=== PATIENT | male | born 2000 | race Caucasian/White ===

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

== ENCOUNTER 2022-07-28 02:52 | Emergency (ER) | payer OTHER ==
[~2022-07-28] VITALS: Ht 177.8 cm; Wt 93.2 kg
[2022-07-28] MEDS ORDERED: ACETAMINOPHEN 500 MG TAB PO ONE (03:35)
[2022-07-28] MEDS ORDERED: IBUPROFEN 800 MG TAB PO ONE (04:50)
[2022-07-28] MEDS ORDERED: METAL LOCK LOOP XX ONE (05:13)
[2022-07-28 06:34] VITALS: BP 126/68
[2022-07-28] MEDS ORDERED: ACET325C5 PO (06:51)
[2022-07-28] MEDS ORDERED: IBUP-1022 PO (06:51)
== END 2022-07-28 07:00 | disposition home or self-care (01) ==
LOC: EDBD 02:52 → M ED 02:52
DX: J09.X9 Influenza due to identified novel influenza A virus with other manifestations (principal); F32.A Depression, unspecified; F41.9 Anxiety disorder, unspecified; F25.9 Schizoaffective disorder, unspecified; Z79.899 Other long term (current) drug therapy

== ENCOUNTER 2022-09-17 00:01 | Emergency (ER) | payer OTHER ==
[~2022-09-17] VITALS: Ht 170.2 cm; Wt 92.9 kg
[~2022-09-17 00:01] MED LIST changes: +ACET325C5 PO; +IBUP-1022 PO
[2022-09-17 05:07] VITALS: BP 138/85
[2022-09-17] MEDS ORDERED: ACETAMINOPHEN TAB 650MG DOSE (2X325MG) PO ONE (06:35)
[2022-09-17] MEDS ORDERED: IBUPROFEN 800 MG TAB PO ONE (06:35)
[2022-09-17] MEDS ORDERED: KETO10TAB PO (06:36)
== END 2022-09-17 06:48 | disposition home or self-care (01) ==
LOC: M ED 00:01 → EDBD 00:01 → M ED 06:48
DX: S43.402A Unspecified sprain of left shoulder joint, initial encounter (principal); W19.XXXA Unspecified fall, initial encounter; Y92.89 Other specified places as the place of occurrence of the external cause; F17.219 Nicotine dependence, cigarettes, with unspecified nicotine-induced disorders; Z79.1 Long term (current) use of non-steroidal anti-inflammatories (NSAID); Z79.899 Other long term (current) drug therapy

== ENCOUNTER 2023-01-12 17:36 | Inpatient (IN) | payer MEDICAID, OTHER ==
[~2023-01-12] VITALS: Ht 175.3 cm; Wt 90.4 kg
[~2023-01-12 17:36] MED LIST changes: +KETO10TAB PO
[2023-01-12] MEDS ORDERED: LURA20TA PO (17:49)
[2023-01-12 18:18] LABS: HEMATOCRIT 44.8 % (42.0-52.0); HEMOGLOBIN 15.8 g/dl (13.5-17.5); MEAN CORPUSCULAR HEMOGLOBIN 29.8 pg (27.0-33.0); MEAN CORPUSCULAR HGB CONC 35.3 g/dl (32.0-36.5); MEAN CORPUSCULAR VOLUME 84.5 fl (80.0-96.0); PLATELET COUNT, AUTOMATED 210 10^3/uL (150-450); WHITE BLOOD COUNT 8.5 10^3/uL (4.0-10.0)
[2023-01-12 18:44] LABS: AMPHETAMINES LEVEL URINE NEGATIVE (NEGATIVE); BARBITURATES URINE NEGATIVE (NEGATIVE); BENZODIAZEPINES URINE NEGATIVE (NEGATIVE); COCAINE METABOLITE URINE NEGATIVE (NEGATIVE); METHADONE URINE NEGATIVE (NEGATIVE); PHENCYCLIDINE URINE NEGATIVE (NEGATIVE)
[2023-01-12 18:45] LABS: CANNABINOIDS URINE NEGATIVE (NEGATIVE); OPIATES URINE NEGATIVE (NEGATIVE)
[2023-01-12 18:46] LABS: ETHYL ALCOHOL (ETHANOL) < 0.003 % (0.000-0.010)
[2023-01-12 18:48] LABS: ACETAMINOPHEN LEVEL < 2.0 UG/ML (10.0-20.0); ALBUMIN 4.4 G/DL (3.2-5.2); ALKALINE PHOSPHATASE 115 U/L (46-116); ALT/SGPT 112 U/L (7.0-40); AST/SGOT 36 U/L (<34); BILIRUBIN,DIRECT 0.5 MG/DL (<0.4); BILIRUBIN,TOTAL 1.5 MG/DL (0.3-1.2); BLOOD UREA NITROGEN 14 MG/DL (9-23); CALCIUM LEVEL 9.1 MG/DL (8.5-10.1); CARBON DIOXIDE LEVEL 24 MMOL/L (20-31); CHLORIDE LEVEL 103 MMOL/L (98-107); CREATININE FOR GFR 0.95 MG/DL (0.70-1.30); GLUCOSE, FASTING 88 MG/DL (60-100); POTASSIUM SERUM 3.6 MMOL/L (3.5-5.1); SALICYLATE LEVEL < 3.0 MG/DL (<30); SODIUM LEVEL 138 MMOL/L (136-145)
[2023-01-12 18:50] LABS: THYROID STIMULATING HORMONE 5.609 uIU/ML (0.48-4.17)
[2023-01-12] MEDS ORDERED: GABA-282 PO (20:52)
[2023-01-12] MEDS ORDERED: HOME MED LIST COMPLETE! XX SCH (20:55)
[2023-01-13] MEDS ORDERED: traZODone 50 MG TAB PO PRN (01:30)
[2023-01-13] MEDS ORDERED: OLANZapine ORAL DISINTEGRATING TAB 5MG PO PRN (01:30)
[2023-01-13] MEDS ORDERED: MOM 30ML SUSPENSION UDC PO PRN (01:30)
[2023-01-13] MEDS ORDERED: MAALOX 30 ML SUSP *UDC PO PRN (01:30)
[2023-01-13 02:53] VITALS: BP 136/87
[2023-01-13] MEDS: ACETAMINOPHEN TAB 650MG DOSE (2X325MG) PO PRN (05:22)
[2023-01-13] MEDS: GABAPENTIN 300 MG CAP PO SCH (08:55)
[2023-01-13] MEDS ORDERED: PALIPERIDONE 3MG ER TAB (INVEGA) PO SCH (09:00)
[2023-01-13] MEDS ORDERED: LURASIDONE 20 MG TAB (LATUDA) PO SCH (09:00)
[2023-01-13 15:48] VITALS: BP 110/55
[2023-01-13] MEDS: PALIPERIDONE 3MG ER TAB (INVEGA) PO SCH (21:47)
[2023-01-14 06:27] VITALS: BP 145/86
[2023-01-14] MEDS: PALIPERIDONE 3MG ER TAB (INVEGA) PO SCH ×2 (07:46→21:45)
[2023-01-14] MEDS: GABAPENTIN 300 MG CAP PO SCH (07:46)
[2023-01-14 08:04] LABS: CHOLESTEROL RISK RATIO 3.68 (<5); HDL CHOLESTEROL 37.4 MG/DL (>40); LDL CHOLESTEROL 85.8 MG/DL (<100); NON-HDL-C 100.6 MG/DL
[2023-01-14] MEDS: ACETAMINOPHEN TAB 650MG DOSE (2X325MG) PO PRN (10:08)
[2023-01-14 16:23] VITALS: BP 127/71
[2023-01-15 06:46] VITALS: BP 126/91
[2023-01-15] MEDS: PALIPERIDONE 3MG ER TAB (INVEGA) PO SCH ×2 (08:00→20:16)
[2023-01-15] MEDS: GABAPENTIN 300 MG CAP PO SCH (08:00)
[2023-01-15] MEDS: IBUPROFEN 400MG TAB PO PRN (11:23)
[2023-01-15 16:44] VITALS: BP 127/68
[2023-01-16 06:34] VITALS: BP 126/57
[2023-01-16] MEDS: GABAPENTIN 300 MG CAP PO SCH (08:19)
[2023-01-16] MEDS: PALIPERIDONE 3MG ER TAB (INVEGA) PO SCH ×2 (08:19→20:46)
[2023-01-16] MEDS ORDERED: BENZTROPINE 0.5 MG TAB PO PRN (09:55)
[2023-01-16] MEDS ORDERED: PALIPERIDONE PAL 234MG/1.5ML INJ (INVEGA)(FREE PSY INPT ONLY) IM ONE (12:00)
[2023-01-16 18:00] VITALS: BP 139/86
[2023-01-17 06:39] VITALS: BP 137/61
[2023-01-17] MEDS: GABAPENTIN 300 MG CAP PO SCH (08:26)
[2023-01-17] MEDS: PALIPERIDONE 3MG ER TAB (INVEGA) PO SCH ×2 (08:26→21:41)
[2023-01-17] MEDS: ACETAMINOPHEN TAB 650MG DOSE (2X325MG) PO PRN (12:40)
[2023-01-17 16:18] VITALS: BP 148/88
[2023-01-18 06:17] VITALS: BP 118/59
[2023-01-18] MEDS: GABAPENTIN 300 MG CAP PO SCH (08:38)
[2023-01-18] MEDS: PALIPERIDONE 3MG ER TAB (INVEGA) PO SCH ×2 (08:39→20:07)
[2023-01-18] MEDS ORDERED: BENZ0.5T2 PO (12:33)
[2023-01-18] MEDS ORDERED: INVE234I IM (12:33)
[2023-01-18] MEDS ORDERED: GABA-282 PO (12:33)
[2023-01-18 18:34] VITALS: BP 111/81
[2023-01-18] MEDS: IBUPROFEN 400MG TAB PO PRN (18:36)
[2023-01-19 06:44] VITALS: BP 117/72
[2023-01-19] MEDS: GABAPENTIN 300 MG CAP PO SCH (08:22)
[2023-01-19] MEDS ORDERED: PALIPERIDONE PAL 156MG/1ML INJ(INVEGA)(FREE PSY INPT ONLY) IM ONE (09:00)
== END 2023-01-19 11:18 | disposition home or self-care (01) | DRG 750 ==
LOC: M ED 17:36 → M ED INP 01-13 01:30 → M PSY 01-13 03:06
PROVIDERS: ADMIT Student in an Organized Health Care Education/Training Program; ATTEND Psychiatry & Neurology Psychiatry
DX: F25.0 Schizoaffective disorder, bipolar type (principal); R45.850 Homicidal ideations; R45.851 Suicidal ideations; R74.01 Elevation of levels of liver transaminase levels; E86.0 Dehydration; Z79.899 Other long term (current) drug therapy; Z87.891 Personal history of nicotine dependence; Z81.8 Family history of other mental and behavioral disorders; Z62.811 Personal history of psychological abuse in childhood; Z91.148 Patient's other noncompliance with medication regimen for other reason

== ENCOUNTER 2023-01-31 06:31 | Inpatient (IN) | payer MEDICAID, OTHER ==
[~2023-01-31] VITALS: Ht 175.3 cm; Wt 91.4 kg
[~2023-01-31 06:31] MED LIST changes: +BENZ0.5T2 PO; +GABA-282 PO; +INVE234I IM; +LURA20TA PO
[2023-01-31 08:29] LABS: HEMOGLOBIN 14.9 g/dl (13.5-17.5); MEAN CORPUSCULAR HEMOGLOBIN 29.6 pg (27.0-33.0); MEAN CORPUSCULAR HGB CONC 34.7 g/dl (32.0-36.5); MEAN CORPUSCULAR VOLUME 85.3 fl (80.0-96.0); PLATELET COUNT, AUTOMATED 244 10^3/uL (150-450); RED BLOOD COUNT 5.04 10^6/uL (4.30-6.10); WHITE BLOOD COUNT 8.2 10^3/uL (4.0-10.0)
[2023-01-31 08:46] LABS: AMPHETAMINES LEVEL URINE NEGATIVE (NEGATIVE); BENZODIAZEPINES URINE NEGATIVE (NEGATIVE)
[2023-01-31 08:47] LABS: BARBITURATES URINE NEGATIVE (NEGATIVE); CANNABINOIDS URINE NEGATIVE (NEGATIVE); COCAINE METABOLITE URINE NEGATIVE (NEGATIVE); METHADONE URINE NEGATIVE (NEGATIVE); OPIATES URINE NEGATIVE (NEGATIVE); PHENCYCLIDINE URINE NEGATIVE (NEGATIVE)
[2023-01-31 08:48] LABS: ETHYL ALCOHOL (ETHANOL) < 0.003 % (0.000-0.010)
[2023-01-31 08:50] LABS: SALICYLATE LEVEL < 3.0 MG/DL (<30)
[2023-01-31 08:51] LABS: ACETAMINOPHEN LEVEL < 2.0 UG/ML (10.0-20.0); ALBUMIN 4.1 G/DL (3.2-5.2); ALKALINE PHOSPHATASE 99 U/L (46-116); ALT/SGPT 79 U/L (7.0-40); AST/SGOT 25 U/L (<34); BILIRUBIN,DIRECT 0.3 MG/DL (<0.4); BILIRUBIN,TOTAL 0.8 MG/DL (0.3-1.2); BLOOD UREA NITROGEN 17 MG/DL (9-23); CALCIUM LEVEL 9.4 MG/DL (8.5-10.1); CARBON DIOXIDE LEVEL 24 MMOL/L (20-31); CHLORIDE LEVEL 105 MMOL/L (98-107); CREATININE FOR GFR 0.95 MG/DL (0.70-1.30); GLUCOSE, FASTING 95 MG/DL (60-100); POTASSIUM SERUM 3.8 MMOL/L (3.5-5.1); SODIUM LEVEL 137 MMOL/L (136-145); TOTAL PROTEIN 6.7 G/DL (5.7-8.2)
[2023-01-31 08:54] LABS: THYROID STIMULATING HORMONE 3.159 uIU/ML (0.48-4.17)
[2023-01-31] MEDS: NICOTINE 21MG/24HR 1 EA TRANSDERMAL TD SCH (09:00)
[2023-01-31] MEDS ORDERED: MAALOX 30 ML SUSP *UDC PO PRN (11:45)
[2023-01-31] MEDS ORDERED: MOM 30ML SUSPENSION UDC PO PRN (11:45)
[2023-01-31] MEDS ORDERED: IBUPROFEN 400MG TAB PO PRN (11:45)
[2023-01-31] MEDS ORDERED: diphenhydrAMINE 25MG CAP PO PRN (11:45)
[2023-01-31] MEDS ORDERED: ACETAMINOPHEN TAB 650MG DOSE (2X325MG) PO PRN (11:45)
[2023-01-31] MEDS ORDERED: BENZTROPINE 0.5 MG TAB PO PRN (11:50)
[2023-01-31] MEDS ORDERED: PATIENT COMMENT (12:14)
[2023-01-31] MEDS ORDERED: INVE234I IM (12:14)
[2023-01-31] MEDS ORDERED: GABA-282 PO (12:14)
[2023-01-31] MEDS ORDERED: BENZ0.5T2 PO (12:14)
[2023-01-31] MEDS ORDERED: HOME MED LIST COMPLETE! XX SCH (12:15)
[2023-01-31 14:09] VITALS: BP 127/83
[2023-01-31] MEDS: traZODone 50 MG TAB PO PRN (20:31)
[2023-01-31] MEDS: PALIPERIDONE 3MG ER TAB (INVEGA) PO SCH (20:31)
[2023-02-01 06:46] VITALS: BP 100/55
[2023-02-01] MEDS: NICOTINE 21MG/24HR 1 EA TRANSDERMAL TD SCH (08:24)
[2023-02-01 18:15] VITALS: BP 130/70
[2023-02-01] MEDS: PALIPERIDONE 3MG ER TAB (INVEGA) PO SCH (22:06)
[2023-02-02] MEDS: traZODone 50 MG TAB PO PRN ×2 (00:33→23:14)
[2023-02-02 06:45] VITALS: BP 119/56
[2023-02-02] MEDS: NICOTINE 21MG/24HR 1 EA TRANSDERMAL TD SCH (08:44)
[2023-02-02] MEDS ORDERED: PALI1TAB2 PO (15:04)
[2023-02-02 18:42] VITALS: BP 144/75
[2023-02-02] MEDS: PALIPERIDONE 3MG ER TAB (INVEGA) PO SCH (21:21)
[2023-02-03 06:34] VITALS: BP 126/63
[2023-02-03] MEDS: NICOTINE 21MG/24HR 1 EA TRANSDERMAL TD SCH (08:58)
== END 2023-02-03 11:54 | disposition home or self-care (01) | DRG 750 ==
LOC: M ED 06:31 → M ED INP 11:45 → M PSY 14:08
PROVIDERS: ADMIT Student in an Organized Health Care Education/Training Program; ATTEND Student in an Organized Health Care Education/Training Program
DX: F25.0 Schizoaffective disorder, bipolar type (principal); R45.851 Suicidal ideations; R45.850 Homicidal ideations; Z62.810 Personal history of physical and sexual abuse in childhood; Z62.811 Personal history of psychological abuse in childhood; Z91.198 Patient's noncompliance with other medical treatment and regimen for other reason; Z56.0 Unemployment, unspecified; Z63.8 Other specified problems related to primary support group; Z79.899 Other long term (current) drug therapy; F84.0 Autistic disorder; F17.200 Nicotine dependence, unspecified, uncomplicated

== ENCOUNTER 2023-04-11 02:54 | Inpatient (IN) | payer MEDICAID, OTHER ==
[~2023-04-11] VITALS: Ht 170.2 cm; Wt 94.0 kg
[~2023-04-11 02:54] MED LIST changes: +PATIENT COMMENT
[2023-04-11 04:04] LABS: HEMATOCRIT 45.3 % (42.0-52.0); HEMOGLOBIN 15.6 g/dl (13.5-17.5); MEAN CORPUSCULAR HEMOGLOBIN 28.9 pg (27.0-33.0); MEAN CORPUSCULAR HGB CONC 34.4 g/dl (32.0-36.5); PLATELET COUNT, AUTOMATED 229 10^3/uL (150-450); RED BLOOD COUNT 5.39 10^6/uL (4.30-6.10); WHITE BLOOD COUNT 9.6 10^3/uL (4.0-10.0)
[2023-04-11 04:23] LABS: AMPHETAMINES LEVEL URINE NEGATIVE (NEGATIVE); BENZODIAZEPINES URINE NEGATIVE (NEGATIVE); CANNABINOIDS URINE NEGATIVE (NEGATIVE); PHENCYCLIDINE URINE NEGATIVE (NEGATIVE)
[2023-04-11 04:24] LABS: BARBITURATES URINE NEGATIVE (NEGATIVE); COCAINE METABOLITE URINE NEGATIVE (NEGATIVE); METHADONE URINE NEGATIVE (NEGATIVE); OPIATES URINE NEGATIVE (NEGATIVE)
[2023-04-11 04:26] LABS: ETHYL ALCOHOL (ETHANOL) < 0.003 % (0.000-0.010)
[2023-04-11 04:27] LABS: ACETAMINOPHEN LEVEL < 2.0 UG/ML (10.0-20.0)
[2023-04-11 04:28] LABS: ALBUMIN 4.4 G/DL (3.2-5.2); ALKALINE PHOSPHATASE 109 U/L (46-116); ALT/SGPT 80 U/L (7.0-40); AST/SGOT 24 U/L (<34); BILIRUBIN,DIRECT 0.4 MG/DL (<0.4); BILIRUBIN,TOTAL 1.2 MG/DL (0.3-1.2); BLOOD UREA NITROGEN 12 MG/DL (9-23); CALCIUM LEVEL 9.3 MG/DL (8.5-10.1); CARBON DIOXIDE LEVEL 30 MMOL/L (20-31); CHLORIDE LEVEL 104 MMOL/L (98-107); GLUCOSE, FASTING 118 MG/DL (60-100); SALICYLATE LEVEL < 3.0 MG/DL (<30); SODIUM LEVEL 140 MMOL/L (136-145); TOTAL PROTEIN 7.2 G/DL (5.7-8.2)
[2023-04-11 04:30] LABS: THYROID STIMULATING HORMONE 7.201 uIU/ML (0.48-4.17)
[2023-04-11 07:05] LABS: FREE T4 1.42 NG/DL (0.83-1.43)
[2023-04-11] MEDS ORDERED: MED REC CURRENTLY UNOBTAINABLE XX SCH (08:50)
[2023-04-11] MEDS ORDERED: MELA3TAB49 PO (10:32)
[2023-04-11] MEDS ORDERED: MED REC IN PROGRESS XX SCH (10:55)
[2023-04-11] MEDS ORDERED: HOME MED LIST COMPLETE! XX SCH (10:55)
[2023-04-11] MEDS ORDERED: ACETAMINOPHEN TAB 650MG DOSE (2X325MG) PO PRN (13:20)
[2023-04-11] MEDS ORDERED: OLANZapine ORAL DISINTEGRATING TAB 5MG PO PRN (13:20)
[2023-04-11] MEDS ORDERED: MOM 30ML SUSPENSION UDC PO PRN (13:20)
[2023-04-11] MEDS ORDERED: diphenhydrAMINE 25MG CAP PO PRN (13:20)
[2023-04-11] MEDS ORDERED: traZODone 50 MG TAB PO PRN (13:20)
[2023-04-11] MEDS ORDERED: MAALOX 30 ML SUSP *UDC PO PRN (13:20)
[2023-04-11] MEDS ORDERED: IBUPROFEN 400MG TAB PO PRN (13:20)
[2023-04-11 15:57] VITALS: BP 132/93; TEMP 96.2; O2SAT 99
[2023-04-12 06:26] VITALS: BP 119/67; TEMP 98; O2SAT 98
[2023-04-12] MEDS: NICOTINE 21MG/24HR 1 EA TRANSDERMAL TD SCH (09:00)
[2023-04-12] MEDS: PALIPERIDONE 6MG ER TAB (INVEGA) PO SCH (09:45)
[2023-04-12] MEDS: GABAPENTIN 300 MG CAP PO SCH (09:46)
[2023-04-12 17:17] VITALS: BP 130/63; TEMP 96.8; O2SAT 96
[2023-04-12] MEDS: RAMELTEON 8 MG TAB (ROZEREM) PO SCH (21:10)
[2023-04-13 06:51] VITALS: BP 115/55; TEMP 97.9; O2SAT 97
[2023-04-13] MEDS: GABAPENTIN 300 MG CAP PO SCH (08:42)
[2023-04-13] MEDS: PALIPERIDONE 6MG ER TAB (INVEGA) PO SCH (08:42)
[2023-04-13] MEDS: NICOTINE 21MG/24HR 1 EA TRANSDERMAL TD SCH (08:43)
[2023-04-13 17:06] VITALS: BP 149/75; TEMP 96.4; O2SAT 96
[2023-04-13] MEDS: RAMELTEON 8 MG TAB (ROZEREM) PO SCH (20:03)
[2023-04-14 06:48] VITALS: BP 115/68; TEMP 97.2; O2SAT 99
[2023-04-14] MEDS: GABAPENTIN 300 MG CAP PO SCH (08:28)
[2023-04-14] MEDS: PALIPERIDONE 6MG ER TAB (INVEGA) PO SCH (08:28)
[2023-04-14] MEDS: NICOTINE 21MG/24HR 1 EA TRANSDERMAL TD SCH (08:29)
[2023-04-14] MEDS ORDERED: risperiDONE LONG-ACTING 25MG 2ML INJ IM SCH (10:40)
[2023-04-14] MEDS ORDERED: NICO21PAT TD (12:25)
[2023-04-14] MEDS ORDERED: RISP25INJ IM (12:25)
[2023-04-14] MEDS ORDERED: PALI1TAB3 PO (12:25)
[2023-04-14] MEDS ORDERED: TRAZ-252 PO (12:26)
== END 2023-04-14 14:26 | disposition home or self-care (01) | DRG 750 ==
LOC: M ED 02:54 → M ED INP 13:19 → M PSY 15:56
PROVIDERS: ADMIT Student in an Organized Health Care Education/Training Program; ATTEND Student in an Organized Health Care Education/Training Program
DX: F25.0 Schizoaffective disorder, bipolar type (principal); F43.10 Post-traumatic stress disorder, unspecified; F84.0 Autistic disorder; F90.9 Attention-deficit hyperactivity disorder, unspecified type; F32.9 Major depressive disorder, single episode, unspecified; Z62.811 Personal history of psychological abuse in childhood; Z79.899 Other long term (current) drug therapy; F17.200 Nicotine dependence, unspecified, uncomplicated; Z56.0 Unemployment, unspecified; E02 Subclinical iodine-deficiency hypothyroidism; R45.851 Suicidal ideations; G47.00 Insomnia, unspecified

== ENCOUNTER 2023-04-21 17:45 | Inpatient (IN) | payer OTHER ==
[~2023-04-21] VITALS: Ht 170.2 cm; Wt 94.0 kg
[~2023-04-21 17:45] MED LIST changes: +MELA3TAB49 PO; +PALI1TAB3 PO; +RISP25INJ IM
[2023-04-21 18:32] LABS: HEMATOCRIT 47.4 % (42.0-52.0); HEMOGLOBIN 16.6 g/dl (13.5-17.5); MEAN CORPUSCULAR HEMOGLOBIN 29.1 pg (27.0-33.0); PLATELET COUNT, AUTOMATED 218 10^3/uL (150-450); RED BLOOD COUNT 5.71 10^6/uL (4.30-6.10); WHITE BLOOD COUNT 8.4 10^3/uL (4.0-10.0)
[2023-04-21 19:00] LABS: ETHYL ALCOHOL (ETHANOL) < 0.003 % (0.000-0.010)
[2023-04-21 19:01] LABS: ACETAMINOPHEN LEVEL < 2.0 UG/ML (10.0-20.0)
[2023-04-21 19:02] LABS: ALBUMIN 4.5 G/DL (3.2-5.2); ALKALINE PHOSPHATASE 116 U/L (46-116); ALT/SGPT 82 U/L (7.0-40); AST/SGOT 23 U/L (<34); BILIRUBIN,DIRECT 0.4 MG/DL (<0.4); BILIRUBIN,TOTAL 1.1 MG/DL (0.3-1.2); BLOOD UREA NITROGEN 15 MG/DL (9-23); CALCIUM LEVEL 9.5 MG/DL (8.5-10.1); CARBON DIOXIDE LEVEL 25 MMOL/L (20-31); CHLORIDE LEVEL 106 MMOL/L (98-107); GLUCOSE, FASTING 105 MG/DL (60-100); POTASSIUM SERUM 3.7 MMOL/L (3.5-5.1); SALICYLATE LEVEL < 3.0 MG/DL (<30); SODIUM LEVEL 139 MMOL/L (136-145); TOTAL PROTEIN 7.6 G/DL (5.7-8.2)
[2023-04-21 19:04] LABS: THYROID STIMULATING HORMONE 3.316 uIU/ML (0.48-4.17)
[2023-04-21 19:22] LABS: AMPHETAMINES LEVEL URINE NEGATIVE (NEGATIVE); BARBITURATES URINE NEGATIVE (NEGATIVE); BENZODIAZEPINES URINE NEGATIVE (NEGATIVE); CANNABINOIDS URINE NEGATIVE (NEGATIVE); COCAINE METABOLITE URINE NEGATIVE (NEGATIVE); METHADONE URINE NEGATIVE (NEGATIVE); OPIATES URINE NEGATIVE (NEGATIVE); PHENCYCLIDINE URINE NEGATIVE (NEGATIVE)
[2023-04-21] MEDS ORDERED: MED REC IN PROGRESS XX SCH (19:40)
[2023-04-21] MEDS ORDERED: diphenhydrAMINE 25MG CAP PO PRN (21:40)
[2023-04-21] MEDS ORDERED: MOM 30ML SUSPENSION UDC PO PRN (21:40)
[2023-04-21] MEDS ORDERED: TRAZ-186 PO (22:09)
[2023-04-21] MEDS ORDERED: PALI1TAB3 PO (22:09)
[2023-04-21] MEDS ORDERED: HOME MED LIST COMPLETE! XX SCH (22:10)
[2023-04-21 22:35] VITALS: BP 124/76; TEMP 97; O2SAT 97
[2023-04-22 06:32] VITALS: BP 109/55; TEMP 96.5; O2SAT 98
[2023-04-22] MEDS: PALIPERIDONE 6MG ER TAB (INVEGA) PO SCH (09:58)
[2023-04-22] MEDS: GABAPENTIN 300 MG CAP PO SCH (09:58)
[2023-04-22 18:07] VITALS: BP 123/60; TEMP 97.4; O2SAT 98
[2023-04-22 18:36] VITALS: BP 123/60; TEMP 97.4
[2023-04-23] MEDS: ACETAMINOPHEN TAB 650MG DOSE (2X325MG) PO PRN (06:34)
[2023-04-23 06:39] VITALS: BP 125/80; TEMP 97.9; O2SAT 97
[2023-04-23] MEDS: GABAPENTIN 300 MG CAP PO SCH (09:39)
[2023-04-23] MEDS: PALIPERIDONE 6MG ER TAB (INVEGA) PO SCH (09:40)
[2023-04-23 16:46] VITALS: BP 131/62; TEMP 97.4
[2023-04-23] MEDS: traZODone 50 MG TAB PO PRN (23:05)
[2023-04-24 06:22] VITALS: BP 132/74; TEMP 97.9; O2SAT 97
[2023-04-24] MEDS: GABAPENTIN 300 MG CAP PO SCH (08:15)
[2023-04-24] MEDS: PALIPERIDONE 6MG ER TAB (INVEGA) PO SCH (08:15)
[2023-04-24 18:00] VITALS: BP 138/77; TEMP 97.4
[2023-04-24] MEDS: ACETAMINOPHEN TAB 650MG DOSE (2X325MG) PO PRN (20:00)
[2023-04-24] MEDS: traZODone 50 MG TAB PO PRN (23:03)
[2023-04-25 06:21] VITALS: BP 140/64; TEMP 97.4; O2SAT 98
[2023-04-25] MEDS: PALIPERIDONE 6MG ER TAB (INVEGA) PO SCH (08:13)
[2023-04-25] MEDS: GABAPENTIN 300 MG CAP PO SCH (08:13)
[2023-04-25 19:15] VITALS: BP 149/75; TEMP 98.6
[2023-04-25] MEDS: traZODone 50 MG TAB PO PRN (22:30)
[2023-04-25] MEDS: MAALOX 30 ML SUSP *UDC PO PRN (23:42)
[2023-04-26 06:36] VITALS: BP 131/59; TEMP 97.1; O2SAT 98
[2023-04-26] MEDS: PALIPERIDONE 6MG ER TAB (INVEGA) PO SCH (08:55)
[2023-04-26] MEDS: GABAPENTIN 300 MG CAP PO SCH (08:55)
[2023-04-26 18:16] VITALS: BP 124/58; TEMP 96.9; O2SAT 97
[2023-04-26] MEDS: traZODone 50 MG TAB PO PRN (22:42)
[2023-04-27] MEDS: MAALOX 30 ML SUSP *UDC PO PRN (05:27)
[2023-04-27 07:03] VITALS: BP 133/84; TEMP 98; O2SAT 96
[2023-04-27] MEDS: PALIPERIDONE 6MG ER TAB (INVEGA) PO SCH (08:19)
[2023-04-27] MEDS: GABAPENTIN 300 MG CAP PO SCH (08:19)
[2023-04-27] MEDS ORDERED: risperiDONE LONG-ACTING 37.5MG 2ML INJ IM SCH (09:00)
[2023-04-27 18:04] VITALS: BP 118/57; TEMP 97.7; O2SAT 96
[2023-04-27] MEDS: IBUPROFEN 400MG TAB PO PRN (20:25)
[2023-04-27] MEDS: traZODone 50 MG TAB PO PRN (21:20)
[2023-04-28] MEDS: MAALOX 30 ML SUSP *UDC PO PRN (03:17)
[2023-04-28 06:46] VITALS: BP 134/76; TEMP 98.4; O2SAT 99
[2023-04-28] MEDS: GABAPENTIN 300 MG CAP PO SCH (08:11)
[2023-04-28] MEDS: PALIPERIDONE 6MG ER TAB (INVEGA) PO SCH (08:11)
[2023-04-28] MEDS ORDERED: risperiDONE LONG-ACTING 37.5MG 2ML INJ IM SCH (09:00)
[2023-04-28] MEDS: IBUPROFEN 400MG TAB PO PRN (12:32)
[2023-04-28] MEDS ORDERED: RISP37INJ IM (12:33)
[2023-04-28] MEDS ORDERED: PALI1TAB3 PO (12:33)
[2023-04-28] MEDS ORDERED: GABA-282 PO (12:33)
== END 2023-04-28 19:18 | disposition home or self-care (01) | DRG 750 ==
LOC: M ED 17:45 → M ED INP 21:37 → M PSY 22:52
PROVIDERS: ADMIT Psychiatry & Neurology Psychiatry; ATTEND Student in an Organized Health Care Education/Training Program
DX: F25.1 Schizoaffective disorder, depressive type (principal); R45.851 Suicidal ideations; F84.0 Autistic disorder; F41.9 Anxiety disorder, unspecified; F32.A Depression, unspecified; F10.11 Alcohol abuse, in remission; F43.10 Post-traumatic stress disorder, unspecified; F60.89 Other specific personality disorders; F17.210 Nicotine dependence, cigarettes, uncomplicated; Z63.4 Disappearance and death of family member; Z79.899 Other long term (current) drug therapy; Z63.79 Other stressful life events affecting family and household

== ENCOUNTER 2023-04-30 19:34 | Emergency (ER) | payer OTHER ==
[~2023-04-30 19:34] MED LIST changes: +RISP37INJ IM
[2023-04-30 19:42] VITALS: BP 151/76; TEMP 97; O2SAT 95
[2023-05-01 00:46] LABS: RSV AMPLIFICATION NEGATIVE (NEGATIVE)
[2023-05-01] MEDS ORDERED: IBUP-1022 PO (01:04)
[2023-05-01] MEDS ORDERED: IBUPROFEN 600MG TAB PO ONE (01:05)
== END 2023-05-01 01:09 | disposition home or self-care (01) ==
LOC: M ED 19:34
DX: J02.9 Acute pharyngitis, unspecified (principal)

== ENCOUNTER → 2023-05-03 | Outpatient (REF) | payer OTHER ==
[2023-05-03 17:12] LABS: ALBUMIN 4.4 G/DL (3.2-5.2); ALKALINE PHOSPHATASE 114 U/L (46-116); ALT/SGPT 82 U/L (7.0-40); AST/SGOT 22 U/L (<34); BILIRUBIN,DIRECT 0.5 MG/DL (<0.4); BILIRUBIN,TOTAL 1.6 MG/DL (0.3-1.2); TOTAL PROTEIN 7.3 G/DL (5.7-8.2)
[2023-05-03 17:18] LABS: HEPATITIS B SURFACE ANTIBODY NEGATIVE (POSITIVE)
[2023-05-03 17:50] LABS: HEPATITIS C VIRUS ABY INDEX 0.12 INDEX (<0.8)
[2023-05-03 17:51] LABS: HEPATITIS B CORE ANTIBODY IGM NEGATIVE (NEGATIVE)
== END ==
LOC: M LAB REF 16:20
PROVIDERS: ATTEND Pediatrics
DX: R74.01 Elevation of levels of liver transaminase levels (principal)

== ENCOUNTER 2023-05-15 21:09 | Emergency (ER) | payer OTHER ==
[2023-05-15 22:02] LABS: HEMATOCRIT 42.5 % (42.0-52.0); HEMOGLOBIN 14.9 g/dl (13.5-17.5); MEAN CORPUSCULAR HGB CONC 35.1 g/dl (32.0-36.5); MEAN CORPUSCULAR VOLUME 82.7 fl (80.0-96.0); PLATELET COUNT, AUTOMATED 215 10^3/uL (150-450); RED BLOOD COUNT 5.14 10^6/uL (4.30-6.10); WHITE BLOOD COUNT 5.2 10^3/uL (4.0-10.0)
[2023-05-15 22:26] LABS: SALICYLATE LEVEL < 3.0 MG/DL (<30)
[2023-05-15 22:27] LABS: ALBUMIN 3.9 G/DL (3.2-5.2); ALKALINE PHOSPHATASE 95 U/L (46-116); ALT/SGPT 46 U/L (7.0-40); AST/SGOT 23 U/L (<34); BILIRUBIN,DIRECT 0.4 MG/DL (<0.4); BILIRUBIN,TOTAL 1.2 MG/DL (0.3-1.2); BLOOD UREA NITROGEN 13 MG/DL (9-23); CALCIUM LEVEL 8.8 MG/DL (8.5-10.1); CARBON DIOXIDE LEVEL 26 MMOL/L (20-31); CHLORIDE LEVEL 104 MMOL/L (98-107); CREATININE FOR GFR 1.01 MG/DL (0.70-1.30); GLUCOSE, FASTING 114 MG/DL (60-100); POTASSIUM SERUM 3.7 MMOL/L (3.5-5.1); SODIUM LEVEL 138 MMOL/L (136-145); TOTAL PROTEIN 6.7 G/DL (5.7-8.2)
[2023-05-15 22:29] LABS: ETHYL ALCOHOL (ETHANOL) < 0.003 % (0.000-0.010); THYROID STIMULATING HORMONE 2.901 uIU/ML (0.48-4.17)
[2023-05-15 22:31] LABS: ACETAMINOPHEN LEVEL < 2.0 UG/ML (10.0-20.0)
[2023-05-15 23:15] LABS: AMPHETAMINES LEVEL URINE NEGATIVE (NEGATIVE); BARBITURATES URINE NEGATIVE (NEGATIVE); BENZODIAZEPINES URINE NEGATIVE (NEGATIVE); CANNABINOIDS URINE NEGATIVE (NEGATIVE); COCAINE METABOLITE URINE NEGATIVE (NEGATIVE); METHADONE URINE NEGATIVE (NEGATIVE); OPIATES URINE NEGATIVE (NEGATIVE); PHENCYCLIDINE URINE NEGATIVE (NEGATIVE)
[2023-05-15] MEDS ORDERED: RISP37INJ IM (23:36)
[2023-05-15] MEDS ORDERED: IBUP1TAB6 PO (23:36)
[2023-05-15] MEDS ORDERED: HOME MED LIST COMPLETE! XX SCH (23:40)
[2023-05-16] MEDS ORDERED: GABAPENTIN 300 MG CAP PO ONE (09:00)
[2023-05-17] MEDS ORDERED: GABAPENTIN 300 MG CAP PO ONE (09:00)
[2023-05-17] MEDS ORDERED: risperiDONE LONG-ACTING 37.5MG 2ML INJ IM SCH (09:00)
[2023-05-17 13:04] VITALS: BP 124/78; TEMP 98; O2SAT 98
== END 2023-05-17 13:09 | disposition home or self-care (01) ==
LOC: M ED 21:09
DX: F25.9 Schizoaffective disorder, unspecified (principal); F41.9 Anxiety disorder, unspecified; F84.0 Autistic disorder; F10.10 Alcohol abuse, uncomplicated
CPT/HCPCS: 80048; 80076; 80143; 80307; 82077; 84443; 85027; 87635; 93005; 96372; 99284; J2794

== ENCOUNTER 2023-05-31 22:49 | Inpatient (IN) | payer OTHER ==
[~2023-05-31] VITALS: Ht 172.7 cm; Wt 94.7 kg
[~2023-05-31 22:49] MED LIST changes: +IBUP1TAB6 PO
[2023-06-01 00:38] LABS: HEMATOCRIT 42.9 % (42.0-52.0); HEMOGLOBIN 14.9 g/dl (13.5-17.5); MEAN CORPUSCULAR HEMOGLOBIN 29.1 pg (27.0-33.0); MEAN CORPUSCULAR HGB CONC 34.7 g/dl (32.0-36.5); MEAN CORPUSCULAR VOLUME 83.8 fl (80.0-96.0); PLATELET COUNT, AUTOMATED 217 10^3/uL (150-450); RED BLOOD COUNT 5.12 10^6/uL (4.30-6.10); WHITE BLOOD COUNT 8.4 10^3/uL (4.0-10.0)
[2023-06-01 01:57] LABS: ACETAMINOPHEN LEVEL < 2.0 UG/ML (10.0-20.0); ALBUMIN 4.2 G/DL (3.2-5.2); ALKALINE PHOSPHATASE 101 U/L (46-116); ALT/SGPT 56 U/L (7.0-40); AMPHETAMINES LEVEL URINE NEGATIVE (NEGATIVE); AST/SGOT 21 U/L (<34); BARBITURATES URINE NEGATIVE (NEGATIVE); BENZODIAZEPINES URINE NEGATIVE (NEGATIVE); BILIRUBIN,DIRECT 0.3 MG/DL (<0.4); BILIRUBIN,TOTAL 0.9 MG/DL (0.3-1.2); BLOOD UREA NITROGEN 11 MG/DL (9-23); CALCIUM LEVEL 9.5 MG/DL (8.5-10.1); CANNABINOIDS URINE NEGATIVE (NEGATIVE); CARBON DIOXIDE LEVEL 29 MMOL/L (20-31); CHLORIDE LEVEL 107 MMOL/L (98-107); COCAINE METABOLITE URINE NEGATIVE (NEGATIVE); CREATININE FOR GFR 0.85 MG/DL (0.70-1.30); ETHYL ALCOHOL (ETHANOL) < 0.003 % (0.000-0.010); GLUCOSE, FASTING 93 MG/DL (60-100); METHADONE URINE NEGATIVE (NEGATIVE); OPIATES URINE NEGATIVE (NEGATIVE); PHENCYCLIDINE URINE NEGATIVE (NEGATIVE); POTASSIUM SERUM 3.9 MMOL/L (3.5-5.1); SALICYLATE LEVEL < 3.0 MG/DL (<30); SODIUM LEVEL 142 MMOL/L (136-145); THYROID STIMULATING HORMONE 5.366 uIU/ML (0.48-4.17); TOTAL PROTEIN 6.9 G/DL (5.7-8.2)
[2023-06-01] MEDS ORDERED: HOME MED LIST COMPLETE! XX SCH (05:25)
[2023-06-01] MEDS: NICOTINE 14 MG/24 HR TRANSDERMAL TD SCH (09:00)
[2023-06-01] MEDS ORDERED: OLANZapine ORAL DISINTEGRATING TAB 5MG PO PRN (11:30)
[2023-06-01] MEDS ORDERED: MOM 30ML SUSPENSION UDC PO PRN (11:30)
[2023-06-01] MEDS ORDERED: diphenhydrAMINE 25MG CAP PO PRN (11:30)
[2023-06-01] MEDS ORDERED: ACETAMINOPHEN TAB 650MG DOSE (2X325MG) PO PRN (11:30)
[2023-06-01] MEDS ORDERED: IBUPROFEN 400MG TAB PO PRN (11:30)
[2023-06-01] MEDS ORDERED: MAALOX 30 ML SUSP *UDC PO PRN (11:30)
[2023-06-01] MEDS: GABAPENTIN 300 MG CAP PO SCH (18:07)
[2023-06-01 18:54] VITALS: BP 143/89; TEMP 97.6
[2023-06-02 06:17] VITALS: BP 132/58; TEMP 97.6; O2SAT 97
[2023-06-02] MEDS ORDERED: risperiDONE LONG-ACTING 37.5MG 2ML INJ IM SCH (09:00)
[2023-06-02] MEDS: NICOTINE 14 MG/24 HR TRANSDERMAL TD SCH (09:00)
[2023-06-02] MEDS: GABAPENTIN 300 MG CAP PO SCH (09:38)
[2023-06-02] MEDS ORDERED: BENZTROPINE 1 MG TAB PO PRN (10:15)
[2023-06-02 16:24] VITALS: BP 139/74; TEMP 97.9; O2SAT 100
[2023-06-02] MEDS: traZODone 50 MG TAB PO PRN (20:21)
[2023-06-02] MEDS: IBUPROFEN 600MG TAB PO PRN (20:44)
[2023-06-03 06:31] VITALS: BP 100/57; TEMP 97.4; O2SAT 97
[2023-06-03] MEDS: NICOTINE 14 MG/24 HR TRANSDERMAL TD SCH (08:24)
[2023-06-03] MEDS: GABAPENTIN 300 MG CAP PO SCH (08:26)
[2023-06-03 08:30] LABS: FREE THYROXINE INDEX 2.7 % (1.4-3.8); T UPTAKE 40.9 % (22.5-37.0); THYROID STIMULATING HORMONE 3.143 uIU/ML (0.48-4.17); THYROXINE (T4) 6.5 UG/DL (5.5-11.1)
[2023-06-03 15:57] VITALS: BP 115/57; TEMP 98.4; O2SAT 97
[2023-06-03] MEDS: traZODone 50 MG TAB PO PRN (20:18)
[2023-06-04 06:34] VITALS: BP 150/75; TEMP 97.9; O2SAT 99
[2023-06-04] MEDS: GABAPENTIN 300 MG CAP PO SCH (08:03)
[2023-06-04] MEDS: NICOTINE 14 MG/24 HR TRANSDERMAL TD SCH (08:03)
[2023-06-04] MEDS ORDERED: NICOTINE 14 MG/24 HR TRANSDERMAL TD PRN (09:30)
[2023-06-04] MEDS: IBUPROFEN 600MG TAB PO PRN (15:20)
[2023-06-04 16:15] VITALS: BP 144/76; TEMP 97.7; O2SAT 98
[2023-06-04] MEDS: traZODone 50 MG TAB PO PRN (22:16)
[2023-06-05 06:17] VITALS: BP 108/70; TEMP 97.4; O2SAT 100
[2023-06-05] MEDS: GABAPENTIN 300 MG CAP PO SCH (08:08)
[2023-06-05] MEDS: IBUPROFEN 600MG TAB PO PRN (17:10)
[2023-06-05 18:05] VITALS: BP 137/83; TEMP 98.2
[2023-06-05] MEDS: traZODone 50 MG TAB PO PRN (22:57)
[2023-06-06 06:27] VITALS: BP 110/70; TEMP 98.2; O2SAT 97
[2023-06-06] MEDS: GABAPENTIN 300 MG CAP PO SCH (08:01)
[2023-06-06] MEDS ORDERED: HALO5TAB33 PO (09:40)
[2023-06-06] MEDS ORDERED: BENZ1TAB5 PO (09:40)
== END 2023-06-06 11:11 | disposition home or self-care (01) | DRG 750 ==
LOC: M ED 22:49 → M PSY 06-01 11:27 → M ED 06-01 12:40
PROVIDERS: ADMIT Student in an Organized Health Care Education/Training Program; ATTEND Student in an Organized Health Care Education/Training Program
DX: F25.0 Schizoaffective disorder, bipolar type (principal); F84.0 Autistic disorder; F17.200 Nicotine dependence, unspecified, uncomplicated; Z79.899 Other long term (current) drug therapy; Z62.811 Personal history of psychological abuse in childhood

== ENCOUNTER 2023-08-09 17:07 | Emergency (ER) | payer MEDICAID, OTHER, SELFPAY ==
[~2023-08-09] VITALS: Ht 177.8 cm; Wt 92.3 kg
[~2023-08-09 17:07] MED LIST changes: +BENZ1TAB5 PO; -EFFE37.5 PO; +EFFE37.52 PO; +HALO5TAB33 PO
[2023-08-09 17:12] VITALS: BP 142/90; TEMP 98.3; O2SAT 98
[2023-08-09 18:41] LABS: AMPHETAMINES LEVEL URINE NEGATIVE (NEGATIVE); BARBITURATES URINE NEGATIVE (NEGATIVE); BENZODIAZEPINES URINE NEGATIVE (NEGATIVE); COCAINE METABOLITE URINE NEGATIVE (NEGATIVE); METHADONE URINE NEGATIVE (NEGATIVE); OPIATES URINE NEGATIVE (NEGATIVE); PHENCYCLIDINE URINE NEGATIVE (NEGATIVE)
[2023-08-09 18:43] LABS: HEMATOCRIT 44.2 % (42.0-52.0); HEMOGLOBIN 15.9 g/dl (13.5-17.5); MEAN CORPUSCULAR HEMOGLOBIN 29.4 pg (27.0-33.0); MEAN CORPUSCULAR VOLUME 81.9 fl (80.0-96.0); PLATELET COUNT, AUTOMATED 220 10^3/uL (150-450); WHITE BLOOD COUNT 8.8 10^3/uL (4.0-10.0)
[2023-08-09 18:46] LABS: CANNABINOIDS URINE POSITIVE (NEGATIVE)
[2023-08-09 19:08] LABS: ETHYL ALCOHOL (ETHANOL) < 0.003 % (0.000-0.010)
[2023-08-09 19:10] LABS: ALBUMIN 4.3 G/DL (3.2-5.2); ALKALINE PHOSPHATASE 107 U/L (46-116); ALT/SGPT 119 U/L (7.0-40); AST/SGOT 36 U/L (<34); BILIRUBIN,DIRECT 0.3 MG/DL (<0.4); BILIRUBIN,TOTAL 0.9 MG/DL (0.3-1.2); BLOOD UREA NITROGEN 19 MG/DL (9-23); CALCIUM LEVEL 9.6 MG/DL (8.5-10.1); CARBON DIOXIDE LEVEL 24 MMOL/L (20-31); CHLORIDE LEVEL 107 MMOL/L (98-107); CREATININE FOR GFR 0.86 MG/DL (0.70-1.30); GLUCOSE, FASTING 131 MG/DL (60-100); POTASSIUM SERUM 3.8 MMOL/L (3.5-5.1); SALICYLATE LEVEL < 3.0 MG/DL (<30); SODIUM LEVEL 140 MMOL/L (136-145); TOTAL PROTEIN 7.2 G/DL (5.7-8.2)
[2023-08-09 19:12] LABS: THYROID STIMULATING HORMONE 2.808 uIU/ML (0.48-4.17)
== END 2023-08-09 20:52 | disposition home or self-care (01) ==
LOC: M ED 17:07
DX: R45.851 Suicidal ideations (principal); Z91.51 Personal history of suicidal behavior; Z79.899 Other long term (current) drug therapy

== ENCOUNTER 2023-09-02 21:29 | Inpatient (IN) | payer OTHER, SELFPAY ==
[~2023-09-02] VITALS: Ht 175.3 cm; Wt 92.3 kg
[2023-09-02 22:08] LABS: HEMOGLOBIN 16.6 g/dl (13.5-17.5); MEAN CORPUSCULAR HEMOGLOBIN 29.6 pg (27.0-33.0); MEAN CORPUSCULAR HGB CONC 35.3 g/dl (32.0-36.5); MEAN CORPUSCULAR VOLUME 83.8 fl (80.0-96.0); PLATELET COUNT, AUTOMATED 242 10^3/uL (150-450); RED BLOOD COUNT 5.61 10^6/uL (4.30-6.10); WHITE BLOOD COUNT 10.4 10^3/uL (4.0-10.0)
[2023-09-02 22:26] LABS: AMPHETAMINES LEVEL URINE NEGATIVE (NEGATIVE); BARBITURATES URINE NEGATIVE (NEGATIVE); BENZODIAZEPINES URINE NEGATIVE (NEGATIVE); CANNABINOIDS URINE NEGATIVE (NEGATIVE); COCAINE METABOLITE URINE NEGATIVE (NEGATIVE); METHADONE URINE NEGATIVE (NEGATIVE); OPIATES URINE NEGATIVE (NEGATIVE); PHENCYCLIDINE URINE NEGATIVE (NEGATIVE)
[2023-09-02 22:28] LABS: ETHYL ALCOHOL (ETHANOL) < 0.003 % (0.000-0.010)
[2023-09-02 22:30] LABS: ALBUMIN 4.7 G/DL (3.2-5.2); ALKALINE PHOSPHATASE 117 U/L (46-116); ALT/SGPT 161 U/L (7.0-40); AST/SGOT 58 U/L (<34); BILIRUBIN,DIRECT 0.5 MG/DL (<0.4); BILIRUBIN,TOTAL 1.3 MG/DL (0.3-1.2); BLOOD UREA NITROGEN 12 MG/DL (9-23); CALCIUM LEVEL 9.6 MG/DL (8.5-10.1); CARBON DIOXIDE LEVEL 28 MMOL/L (20-31); CHLORIDE LEVEL 109 MMOL/L (98-107); CREATININE FOR GFR 0.86 MG/DL (0.70-1.30); GLUCOSE, FASTING 108 MG/DL (60-100); POTASSIUM SERUM 4.3 MMOL/L (3.5-5.1); SALICYLATE LEVEL < 3.0 MG/DL (<30); SODIUM LEVEL 145 MMOL/L (136-145); TOTAL PROTEIN 7.6 G/DL (5.7-8.2)
[2023-09-02 22:32] LABS: THYROID STIMULATING HORMONE 5.434 uIU/ML (0.48-4.17)
[2023-09-02] MEDS ORDERED: MOM 30ML SUSPENSION UDC PO PRN (23:50)
[2023-09-02] MEDS ORDERED: ACETAMINOPHEN TAB 650MG DOSE (2X325MG) PO PRN (23:50)
[2023-09-02] MEDS ORDERED: OLANZapine ORAL DISINTEGRATING TAB 5MG PO PRN (23:50)
[2023-09-02] MEDS ORDERED: diphenhydrAMINE 25MG CAP PO PRN (23:50)
[2023-09-02] MEDS ORDERED: MAALOX 30 ML SUSP *UDC PO PRN (23:50)
[2023-09-03] MEDS ORDERED: HALO5TAB33 PO (00:16)
[2023-09-03] MEDS ORDERED: BENZ1TAB5 PO (00:16)
[2023-09-03] MEDS ORDERED: med rec comment (00:18)
[2023-09-03] MEDS ORDERED: HOME MED LIST COMPLETE! XX SCH (00:20)
[2023-09-03] MEDS: IBUPROFEN 400MG TAB PO PRN (01:14)
[2023-09-03 01:17] VITALS: BP 124/84; TEMP 98.9; O2SAT 96
[2023-09-03 06:28] VITALS: BP 129/69; TEMP 97.8; O2SAT 98
[2023-09-03] MEDS ORDERED: BENZTROPINE 1 MG TAB PO PRN (09:45)
[2023-09-03] MEDS ORDERED: risperiDONE LONG-ACTING 37.5MG 2ML INJ IM ONE (13:00)
[2023-09-03 17:52] VITALS: BP 148/63; TEMP 98.1
[2023-09-03] MEDS: traZODone 50 MG TAB PO PRN (21:03)
[2023-09-04 06:07] VITALS: BP 122/61; TEMP 97.6; O2SAT 95
[2023-09-04] MEDS: GABAPENTIN 300 MG CAP PO SCH (09:34)
[2023-09-04] MEDS ORDERED: PALIPERIDONE PAL 234MG/1.5ML INJ (INVEGA)(FREE PSY INPT ONLY) IM ONE (12:00)
[2023-09-04] MEDS: IBUPROFEN 400MG TAB PO PRN (15:33)
[2023-09-04 16:09] VITALS: BP 142/71; TEMP 96.7; O2SAT 95
[2023-09-04] MEDS: traZODone 50 MG TAB PO PRN (22:54)
[2023-09-05 06:31] VITALS: BP 128/63; TEMP 97.7; O2SAT 100
[2023-09-05 07:04] LABS: CHOLESTEROL RISK RATIO 4.68 (<5); HDL CHOLESTEROL 31.4 MG/DL (>40); NON-HDL-C 115.6 MG/DL
[2023-09-05] MEDS: GABAPENTIN 300 MG CAP PO SCH (08:02)
[2023-09-05 18:11] VITALS: BP 132/69; TEMP 97.1
[2023-09-05] MEDS: traZODone 50 MG TAB PO PRN (20:02)
[2023-09-06] MEDS: MYCOLOG CREAM 15GM (NYSTATIN/TRIAMCINOLONE) TOP SCH ×2 (08:09→20:12)
[2023-09-06] MEDS: GABAPENTIN 300 MG CAP PO SCH (08:09)
[2023-09-06] MEDS: IBUPROFEN 400MG TAB PO PRN (16:26)
[2023-09-06 17:02] VITALS: BP 129/72; TEMP 97.2; O2SAT 96
[2023-09-06] MEDS: traZODone 50 MG TAB PO PRN (20:12)
[2023-09-07 06:23] VITALS: BP 133/59; TEMP 97.2; O2SAT 97
[2023-09-07] MEDS ORDERED: PALIPERIDONE PAL 156MG/1ML INJ(INVEGA)(FREE PSY INPT ONLY) IM ONE ×2 (08:00→10:00)
[2023-09-07] MEDS: GABAPENTIN 300 MG CAP PO SCH (08:01)
[2023-09-07] MEDS: MYCOLOG CREAM 15GM (NYSTATIN/TRIAMCINOLONE) TOP SCH (08:01)
[2023-09-07] MEDS ORDERED: GABA-282 PO (09:27)
[2023-09-07] MEDS ORDERED: LORA1TAB23 PO ×2 (09:27→09:29)
[2023-09-07] MEDS ORDERED: BENZ1TAB5 PO (09:27)
[2023-09-07] MEDS ORDERED: TRAZ-252 PO (09:27)
[2023-09-07] MEDS ORDERED: INVE234I IM (09:27)
[2023-09-07] MEDS ORDERED: HALO5TAB33 PO ×2 (09:27)
[2023-09-07] MEDS ORDERED: MYCO15CR TOP (09:27)
== END 2023-09-07 10:18 | disposition home or self-care (01) | DRG 750 ==
LOC: M ED 21:29 → M ED INP 23:48 → M PSY 09-03 00:45
PROVIDERS: ADMIT Student in an Organized Health Care Education/Training Program; ATTEND Student in an Organized Health Care Education/Training Program
DX: F25.9 Schizoaffective disorder, unspecified (principal); R74.01 Elevation of levels of liver transaminase levels; F84.0 Autistic disorder; Z91.148 Patient's other noncompliance with medication regimen for other reason; D72.829 Elevated white blood cell count, unspecified; R94.6 Abnormal results of thyroid function studies; Z62.811 Personal history of psychological abuse in childhood; Z79.899 Other long term (current) drug therapy; Z91.51 Personal history of suicidal behavior

== ENCOUNTER → 2023-12-22 | Outpatient (REF) | payer OTHER ==
[~2023-12-22] MED LIST changes: +LORA1TAB23 PO; +MYCO15CR TOP; +med rec comment
[2023-12-22 20:48] LABS: ALBUMIN 4.1 G/DL (3.2-5.2); BILIRUBIN,DIRECT 0.3 MG/DL (<0.4); TOTAL PROTEIN 7.2 G/DL (5.7-8.2)
== END ==
LOC: M LAB REF 19:58
PROVIDERS: ATTEND Pediatrics
DX: R74.01 Elevation of levels of liver transaminase levels (principal)

== ENCOUNTER 2024-04-10 16:54 | Emergency (ER) | payer OTHER ==
[~2024-04-10] VITALS: Ht 175.3 cm; Wt 100.4 kg
[2024-04-11 03:31] LABS: HEMATOCRIT 45.2 % (42.0-52.0); HEMOGLOBIN 15.8 g/dl (13.5-17.5); MEAN CORPUSCULAR HEMOGLOBIN 29.3 pg (27.0-33.0); MEAN CORPUSCULAR VOLUME 83.9 fl (80.0-96.0); PLATELET COUNT, AUTOMATED 221 10^3/uL (150-450); RED BLOOD COUNT 5.39 10^6/uL (4.30-6.10); WHITE BLOOD COUNT 9.1 10^3/uL (4.0-10.0)
[2024-04-11 03:52] LABS: AMPHETAMINES LEVEL URINE NEGATIVE (NEGATIVE); BARBITURATES URINE NEGATIVE (NEGATIVE); BENZODIAZEPINES URINE NEGATIVE (NEGATIVE); CANNABINOIDS URINE NEGATIVE (NEGATIVE); COCAINE METABOLITE URINE NEGATIVE (NEGATIVE); METHADONE URINE NEGATIVE (NEGATIVE); OPIATES URINE NEGATIVE (NEGATIVE); PHENCYCLIDINE URINE NEGATIVE (NEGATIVE)
[2024-04-11 03:55] LABS: ETHYL ALCOHOL (ETHANOL) < 0.003 % (0.000-0.010)
[2024-04-11 03:57] LABS: ALBUMIN 4.4 G/DL (3.2-5.2); ALKALINE PHOSPHATASE 122 U/L (46-116); ALT/SGPT 182 U/L (7.0-40); AST/SGOT 57 U/L (<34); BILIRUBIN,DIRECT 0.5 MG/DL (<0.4); BILIRUBIN,TOTAL 1.9 MG/DL (0.3-1.2); BLOOD UREA NITROGEN 13 MG/DL (9-23); CALCIUM LEVEL 9.3 MG/DL (8.5-10.1); CARBON DIOXIDE LEVEL 26 MMOL/L (20-31); CHLORIDE LEVEL 106 MMOL/L (98-107); CREATININE FOR GFR 0.87 MG/DL (0.70-1.30); GLOMERULAR FILTRATION RATE > 60.0 (>60); GLUCOSE, FASTING 83 MG/DL (60-100); POTASSIUM SERUM 4.2 MMOL/L (3.5-5.1); SALICYLATE LEVEL < 3.0 MG/DL (<30); SODIUM LEVEL 136 MMOL/L (136-145); TOTAL PROTEIN 6.9 G/DL (5.7-8.2)
[2024-04-11 03:59] LABS: THYROID STIMULATING HORMONE 3.893 uIU/ML (0.55-4.78)
[2024-04-11] MEDS ORDERED: BENZ1TAB5 PO (05:55)
[2024-04-11] MEDS ORDERED: HOME MED LIST COMPLETE! XX SCH (05:55)
[2024-04-11] MEDS ORDERED: HALO5TAB33 PO (05:55)
[2024-04-11] MEDS ORDERED: INVE6TAB3 PO (05:55)
[2024-04-11] MEDS ORDERED: traZODone 50 MG TAB PO PRN (08:00)
[2024-04-11] MEDS ORDERED: GABAPENTIN 300 MG CAP PO PRN (08:00)
[2024-04-11] MEDS ORDERED: BENZTROPINE 1 MG TAB PO PRN (08:00)
[2024-04-11] MEDS: PALIPERIDONE 6MG ER TAB (INVEGA) PO SCH (08:47)
[2024-04-12 21:22] VITALS: BP 136/72; TEMP 98.3; O2SAT 100
== END 2024-04-12 21:23 | disposition home or self-care (01) ==
LOC: M ED 16:54
DX: F20.9 Schizophrenia, unspecified (principal); F84.0 Autistic disorder; F10.10 Alcohol abuse, uncomplicated; F19.10 Other psychoactive substance abuse, uncomplicated; Z79.899 Other long term (current) drug therapy

== ENCOUNTER 2024-05-25 02:18 | Emergency (ER) | payer MEDICARE, MEDICAID ==
[~2024-05-25] VITALS: Ht 175.3 cm; Wt 100.5 kg
[~2024-05-25 02:18] MED LIST changes: +INVE6TAB3 PO
[2024-05-25 02:59] LABS: HEMATOCRIT 46.2 % (42.0-52.0); HEMOGLOBIN 16.3 g/dl (13.5-17.5); MEAN CORPUSCULAR HGB CONC 35.3 g/dl (32.0-36.5); MEAN CORPUSCULAR VOLUME 84.9 fl (80.0-96.0); PLATELET COUNT, AUTOMATED 241 10^3/uL (150-450); RED BLOOD COUNT 5.44 10^6/uL (4.30-6.10); WHITE BLOOD COUNT 7.4 10^3/uL (4.0-10.0)
[2024-05-25 03:13] LABS: AMPHETAMINES LEVEL URINE NEGATIVE (NEGATIVE); BARBITURATES URINE NEGATIVE (NEGATIVE); BENZODIAZEPINES URINE NEGATIVE (NEGATIVE); CANNABINOIDS URINE NEGATIVE (NEGATIVE); COCAINE METABOLITE URINE NEGATIVE (NEGATIVE); METHADONE URINE NEGATIVE (NEGATIVE); OPIATES URINE NEGATIVE (NEGATIVE); PHENCYCLIDINE URINE NEGATIVE (NEGATIVE)
[2024-05-25 03:15] LABS: ETHYL ALCOHOL (ETHANOL) < 0.003 % (0.000-0.010)
[2024-05-25 03:17] LABS: ALBUMIN 4.6 G/DL (3.2-5.2); ALKALINE PHOSPHATASE 130 U/L (46-116); ALT/SGPT 179 U/L (7.0-40); AST/SGOT 56 U/L (<34); BILIRUBIN,DIRECT 0.5 MG/DL (<0.4); BILIRUBIN,TOTAL 1.8 MG/DL (0.3-1.2); BLOOD UREA NITROGEN 14 MG/DL (9-23); CALCIUM LEVEL 9.5 MG/DL (8.5-10.1); CARBON DIOXIDE LEVEL 24 MMOL/L (20-31); CHLORIDE LEVEL 107 MMOL/L (98-107); CREATININE FOR GFR 0.97 MG/DL (0.70-1.30); GLOMERULAR FILTRATION RATE > 60.0 (>60); GLUCOSE, FASTING 91 MG/DL (60-100); POTASSIUM SERUM 4.1 MMOL/L (3.5-5.1); SALICYLATE LEVEL < 3.0 MG/DL (<30); SODIUM LEVEL 139 MMOL/L (136-145); TOTAL PROTEIN 7.5 G/DL (5.7-8.2)
[2024-05-25 03:19] LABS: THYROID STIMULATING HORMONE 3.369 uIU/ML (0.55-4.78)
[2024-05-25] MEDS ORDERED: HOME MED LIST COMPLETE! XX SCH (06:35)
[2024-05-25 08:14] VITALS: BP 140/76; TEMP 97.2; O2SAT 98
[2024-05-25 09:06] LABS: HEPATITIS B SURFACE ANTIGEN NEGATIVE (NEGATIVE)
[2024-05-25 09:26] LABS: HEPATITIS B CORE ANTIBODY IGM NEGATIVE (NEGATIVE)
[2024-05-25 09:27] LABS: HEPATITIS C VIRUS ABY INDEX < 0.02 INDEX (<0.8)
== END 2024-05-25 08:25 | disposition home or self-care (01) ==
LOC: M ED 02:18
DX: F25.9 Schizoaffective disorder, unspecified (principal); R94.5 Abnormal results of liver function studies; Z79.899 Other long term (current) drug therapy

== ENCOUNTER 2024-06-13 13:17 | Emergency (ER) | payer MEDICARE, MEDICAID ==
[~2024-06-13] VITALS: Ht 175.3 cm; Wt 103.1 kg
[~2024-06-13 13:17] MED LIST changes: +GABA-1172 PO; -GABA-282 PO
[2024-06-13] MEDS ORDERED: IBUP-1022 PO (17:08)
[2024-06-13] MEDS ORDERED: AMOX875T2 PO (17:08)
[2024-06-13 17:12] VITALS: BP 147/84; TEMP 97.8; O2SAT 97
[2024-06-13] MEDS: AUGMENTIN 875 MG TAB PO ONE (17:12)
[2024-06-13] MEDS: IBUPROFEN 600MG TAB PO ONE (17:16)
== END 2024-06-13 17:18 | disposition home or self-care (01) ==
LOC: M ED 13:17
DX: K08.89 Other specified disorders of teeth and supporting structures (principal); R68.84 Jaw pain; Z79.2 Long term (current) use of antibiotics; Z79.1 Long term (current) use of non-steroidal anti-inflammatories (NSAID); Z79.899 Other long term (current) drug therapy

== ENCOUNTER → 2024-07-10 | Outpatient (REF) | payer MEDICARE, MEDICAID ==
[~2024-07-10] MED LIST changes: +AMOX875T2 PO
[2024-07-10 17:32] LABS: BASO # 0.1 10^3/uL (0.0-0.2); BASO % 1.2 % (0.0-1.0); EOS # 0.2 10^3/uL (0.0-0.5); EOS % 2.9 % (0.0-3.0); HEMATOCRIT 45.6 % (42.0-52.0); HEMOGLOBIN 15.9 g/dl (13.5-17.5); LYMPH # 2.3 10^3/uL (1.5-5.0); LYMPH % 32.3 % (24.0-44.0); MEAN CORPUSCULAR HEMOGLOBIN 29.8 pg (27.0-33.0); MEAN CORPUSCULAR HGB CONC 34.9 g/dl (32.0-36.5); MEAN CORPUSCULAR VOLUME 85.6 fl (80.0-96.0); MONO # 0.7 10^3/uL (0.0-0.8); NEUTROPHILS # 3.9 10^3/uL (1.5-8.5); PLATELET COUNT, AUTOMATED 215 10^3/uL (150-450); RED BLOOD COUNT 5.33 10^6/uL (4.30-6.10); WHITE BLOOD COUNT 7.2 10^3/uL (4.0-10.0)
[2024-07-10 17:54] LABS: ALBUMIN 4.3 G/DL (3.2-5.2); BILIRUBIN,DIRECT 0.4 MG/DL (<0.4); CHOLESTEROL RISK RATIO 5.08 (<5); LDL CHOLESTEROL 108.4 MG/DL (<100); TOTAL PROTEIN 7.6 G/DL (5.7-8.2)
[2024-07-10 17:56] LABS: FERRITIN 303.7 NG/ML (10.5-307.3); THYROID STIMULATING HORMONE 2.581 uIU/ML (0.55-4.78)
== END ==
LOC: M LAB REF 16:40
PROVIDERS: ATTEND Pediatrics
DX: F10.10 Alcohol abuse, uncomplicated (principal); R74.01 Elevation of levels of liver transaminase levels; Z76.89 Persons encountering health services in other specified circumstances; E07.9 Disorder of thyroid, unspecified

== ENCOUNTER → 2024-09-13 | Outpatient (CLI) | payer MEDICARE, MEDICAID | LOC: M WHC 07:13 | PROVIDERS: ATTEND Pediatrics | DX: K76.0 Fatty (change of) liver, not elsewhere classified (principal); R74.01 Elevation of levels of liver transaminase levels; R16.0 Hepatomegaly, not elsewhere classified ==

== ENCOUNTER → 2024-12-03 | Outpatient (REF) | payer MEDICARE, MEDICAID ==
[2024-12-03 19:04] LABS: ALBUMIN 4.3 G/DL (3.2-5.2); BILIRUBIN,DIRECT 0.3 MG/DL (<0.4); BILIRUBIN,TOTAL 0.9 MG/DL (0.3-1.2); TOTAL PROTEIN 7.4 G/DL (5.7-8.2)
== END ==
LOC: M LAB REF 17:22
PROVIDERS: ATTEND Pediatrics
DX: K76.0 Fatty (change of) liver, not elsewhere classified (principal)

== ENCOUNTER 2025-01-10 15:31 | Inpatient (IN) | payer MEDICARE, MEDICAID ==
[~2025-01-10] VITALS: Ht 175.3 cm; Wt 95.8 kg
[~2025-01-10 15:31] MED LIST changes: -MYCO15CR TOP; +NYST15CR12 TOP
[2025-01-10 16:19] LABS: HEMATOCRIT 45.1 % (42.0-52.0); HEMOGLOBIN 16.1 g/dl (13.5-17.5); MEAN CORPUSCULAR HEMOGLOBIN 29.3 pg (27.0-33.0); MEAN CORPUSCULAR HGB CONC 35.7 g/dl (32.0-36.5); MEAN CORPUSCULAR VOLUME 82.1 fl (80.0-96.0); PLATELET COUNT, AUTOMATED 254 10^3/uL (150-450); RED BLOOD COUNT 5.49 10^6/uL (4.30-6.10); WHITE BLOOD COUNT 8.5 10^3/uL (4.0-10.0)
[2025-01-10 16:42] LABS: AMPHETAMINES LEVEL URINE NEGATIVE (NEGATIVE); BARBITURATES URINE NEGATIVE (NEGATIVE)
[2025-01-10 16:43] LABS: BENZODIAZEPINES URINE NEGATIVE (NEGATIVE); CANNABINOIDS URINE NEGATIVE (NEGATIVE); COCAINE METABOLITE URINE NEGATIVE (NEGATIVE); ETHYL ALCOHOL (ETHANOL) < 0.003 % (0.000-0.010); METHADONE URINE NEGATIVE (NEGATIVE); OPIATES URINE NEGATIVE (NEGATIVE); PHENCYCLIDINE URINE NEGATIVE (NEGATIVE)
[2025-01-10 16:45] LABS: ALBUMIN 4.5 G/DL (3.2-5.2); ALKALINE PHOSPHATASE 125 U/L (40-129); ALT/SGPT 88 U/L (7.0-40); AST/SGOT 32 U/L (<34); BILIRUBIN,DIRECT 0.2 MG/DL (<0.4); BILIRUBIN,TOTAL 0.8 MG/DL (0.3-1.2); BLOOD UREA NITROGEN 13 MG/DL (9-23); CALCIUM LEVEL 9.4 MG/DL (8.5-10.1); CARBON DIOXIDE LEVEL 25 MMOL/L (20-31); CHLORIDE LEVEL 104 MMOL/L (98-107); CREATININE FOR GFR 0.82 MG/DL (0.70-1.30); GLOMERULAR FILTRATION RATE > 90.0 (>60); GLUCOSE, FASTING 100 MG/DL (60-100); SALICYLATE LEVEL < 3.0 MG/DL (<30); SODIUM LEVEL 139 MMOL/L (136-145); TOTAL PROTEIN 7.4 G/DL (5.7-8.2)
[2025-01-10 16:46] LABS: THYROID STIMULATING HORMONE 5.135 uIU/ML (0.55-4.78)
[2025-01-10] MEDS ORDERED: HOME MED LIST COMPLETE! XX SCH (17:45)
[2025-01-10] MEDS ORDERED: diphenhydrAMINE 25MG CAP PO PRN (18:20)
[2025-01-10] MEDS ORDERED: MOM 30ML SUSPENSION UDC PO PRN (18:20)
[2025-01-10] MEDS ORDERED: ACETAMINOPHEN 325 MG TAB PO PRN (18:20)
[2025-01-10] MEDS ORDERED: IBUPROFEN 400MG TAB PO PRN (18:20)
[2025-01-10] MEDS ORDERED: MAALOX 30 ML SUSP *UDC PO PRN (18:20)
[2025-01-10 20:42] VITALS: BP 123/69; TEMP 97.9; O2SAT 99
[2025-01-11 06:28] VITALS: BP 105/66; TEMP 98.5; O2SAT 100
[2025-01-11] MEDS ORDERED: GABAPENTIN 300 MG CAP PO PRN (08:25)
[2025-01-11] MEDS ORDERED: BENZTROPINE 1 MG TAB PO PRN (08:25)
[2025-01-11] MEDS: PALIPERIDONE 6MG ER TAB (INVEGA) PO SCH (09:24)
[2025-01-11 15:54] VITALS: BP 133/77; TEMP 97.6; O2SAT 100
[2025-01-11] MEDS: traZODone 50 MG TAB PO PRN (21:31)
[2025-01-12 15:59] VITALS: BP 133/81; TEMP 97.3; O2SAT 95
[2025-01-13 06:32] VITALS: BP 127/71; TEMP 97; O2SAT 97
== END 2025-01-13 12:54 | disposition home or self-care (01) | DRG 885 ==
LOC: M ED 15:31 → M ED INP 18:18 → M PSY 20:23
PROVIDERS: ADMIT Psychiatry & Neurology Neurology; ATTEND Psychiatry & Neurology Psychiatry
DX: F25.1 Schizoaffective disorder, depressive type (principal); Z62.810 Personal history of physical and sexual abuse in childhood; Z62.811 Personal history of psychological abuse in childhood; Z56.0 Unemployment, unspecified; Z91.51 Personal history of suicidal behavior; Z79.899 Other long term (current) drug therapy

== ENCOUNTER → 2025-07-14 | Outpatient (REF) | payer MEDICARE, MEDICAID ==
[~2025-07-14] MED LIST changes: -ABIL400I IM; +ARIP400S IM; -IBUP-1022 PO; -IBUP1TAB6 PO; +IBUP600T42 PO; +SFHIBU600 PO
[2025-07-14 17:03] LABS: APPEARANCE, URINE CLEAR (CLEAR); BACTERIA, URINE AUTO NEGATIVE (NEGATIVE); BILIRUBIN, URINE AUTO NEGATIVE (NEGATIVE); BLOOD, URINE BLOOD 1+ (NEGATIVE); GLUCOSE, URINE (UA) AUTO NEGATIVE (NEGATIVE); KETONE, URINE AUTO NEGATIVE (NEGATIVE); LEUKOCYTE ESTERASE, URINE AUTO NEGATIVE (NEGATIVE); NITRITE, URINE AUTO NEGATIVE (NEGATIVE); PROTEIN, URINE AUTO NEGATIVE (NEGATIVE); RBC, URINE AUTO 0 /HPF (0-3); SPECIFIC GRAVITY URINE AUTO 1.021 (1.002-1.035); SQUAMOUS EPITHELIAL CELL UR AU 0 /HPF (0-6); UROBILINOGEN, URINE AUTO 2.0 mg/dL (0.0-2.0); WBC, URINE AUTO 0 /HPF (0-3)
[2025-07-14 17:08] LABS: ALT/SGPT 179 U/L (7.0-40); AST/SGOT 58 U/L (<34)
[2025-07-14 17:12] LABS: FREE T4 1.40 NG/DL (0.89-1.76)
[2025-07-14 17:14] LABS: THYROID PEROXIDASE ANTIBODY < 28.0 U/ML (<60.0)
[2025-07-14 17:18] LABS: ESTIMATED AVERAGE GLUCOSE 97.0 MG/DL (60-110)
[2025-07-14 18:09] LABS: Trichomonas vaginalis (AMP) NOT DETECTED (NEGATIVE)
[2025-07-14 18:33] LABS: GC DNA AMPLIFICATION NEGATIVE (NEGATIVE)
[2025-07-21 12:18] LABS: HLA-B27 Negative (Negative)
== END ==
LOC: M LAB REF 16:20
PROVIDERS: ATTEND Pediatrics
DX: R35.0 Frequency of micturition (principal); R74.01 Elevation of levels of liver transaminase levels; R79.89 Other specified abnormal findings of blood chemistry; M54.6 Pain in thoracic spine; Z79.899 Other long term (current) drug therapy; G89.29 Other chronic pain; Z11.3 Encounter for screening for infections with a predominantly sexual mode of transmission; Z72.89 Other problems related to lifestyle

== ENCOUNTER 2025-08-28 18:00 | Emergency (ER) | payer MEDICARE, MEDICAID ==
[~2025-08-28] VITALS: Ht 172.7 cm; Wt 104.0 kg
[2025-08-28 18:04] VITALS: BP 142/64; TEMP 96.5; O2SAT 96
[2025-08-28 18:39] LABS: KETONE, URINE AUTO RFX NEGATIVE (NEGATIVE); LEUKOCYTE ESTERASE UR AUTO RFX NEGATIVE (NEGATIVE); MUCUS, URINE RFX SMALL (NEGATIVE); NITRITE, URINE AUTO RFX NEGATIVE (NEGATIVE); RBC, URINE AUTO RFX 2 /HPF (0-3); SQUAM EPITHELIAL CELL UR AURFX 0 /HPF (0-6); WBC, URINE AUTO RFX 0 /HPF (0-3)
[2025-08-28] MEDS: DOXYCYCLINE HYCLATE 100 MG TABLET PO ONE (18:59)
[2025-08-28] MEDS ORDERED: DOXY-440 PO (19:32)
[2025-08-28 19:41] LABS: Trichomonas vaginalis (AMP) NOT DETECTED (NEGATIVE)
[2025-08-28 20:05] LABS: GC DNA AMPLIFICATION NEGATIVE (NEGATIVE)
== END 2025-08-28 19:38 | disposition home or self-care (01) ==
LOC: M ED 18:00
DX: L02.215 Cutaneous abscess of perineum (principal); F43.10 Post-traumatic stress disorder, unspecified; F41.9 Anxiety disorder, unspecified; Z79.2 Long term (current) use of antibiotics; Z79.899 Other long term (current) drug therapy; Z11.3 Encounter for screening for infections with a predominantly sexual mode of transmission; Z72.89 Other problems related to lifestyle; N50.89 Other specified disorders of the male genital organs